=== PATIENT | female | born 1990 | race Caucasian/White ===

== ENCOUNTER 2016-06-01 09:06 | Emergency (ER) | payer OTHER ==
[~2016-06-01] VITALS: Ht 154.9 cm; Wt 68.9 kg
[2016-06-01 13:02] VITALS: BP 109/82
== END 2016-06-01 13:02 | disposition home or self-care (01) ==
LOC: ED 09:06
DX: G43.909 Migraine, unspecified, not intractable, without status migrainosus (principal); R11.10 Vomiting, unspecified; J30.2 Other seasonal allergic rhinitis
CPT/HCPCS: J1170; J1885; J2405; J3030; J7030